=== PATIENT | female | born 1945 | race Caucasian/White ===

== ENCOUNTER 2024-08-02 16:27 | Emergency (ER) | payer OTHER, SELFPAY ==
[2024-08-02 16:30] VITALS: BP 112/89
[2024-08-02 16:32] VITALS: BP 112/89
[2024-08-02 16:35] VITALS: BMI 27.8
--- NOTE | 2024-08-02 16:39 | ED.MUSCINJ ---
HPI-Injury
General
Chief Complaint: Musculo-Skeletal Complaint
Source: patient
Exam Limitations: none
Time Seen by Provider: 08/02/24 16:29
Nursing documentation reviewed up to this point in time: agreed with
History of Present Illness-Injury
Is this injury a work related problem?: No
Is pt an associate of [facility]/[place]?: No
Initial Injury comments:
Patient states her sneakers caught on her carpet and she fell forward. Hit face on ground. No LOC. Able to get self up off ground. Has pain swelling and bruising to her nose. COmplains of severe pain to her right shoulder. Brought to ED via
EMS. Lives alone
Past History
Past History
ED Past Medical History: GERD, HTN, Hypercholesterolemia and Psychiatric (anxiety and deprsesion); Negative IDDM or NIDDM
Social History
Tobacco: Former smoker
Family History
Family History: CAD
Review of Systems
Review of Systems
Allergies reviewed?: Yes
All Other Systems: ROS reviewed and negative except as documented in HPI and ROS
Constitutional: Reports no symptoms
EENT: Reports no symptoms
Respiratory: Reports no symptoms
Cardiac: Reports no symptoms
ABD/GI: Reports no symptoms
Musculoskeletal: Reports joint pain (severe pain to right shoulder Pain swelling and brusing to nose)
Skin: Reports no symptoms
Neurological: Reports no symptoms
Psychiatric: Reports no symptoms
Musculoskeletal Injury Exam
Musculoskeletal Injury Exam
Right Shoulder:
Pain with Movement?: Moderate
Tender to palpation?: Moderate
Soft tissue swelling?: Moderate
External deformity and angulation?: None
Joint effusion?: None
Contusion?: Moderate
Hematoma-local bleeding into tissue?: None
Strain- Sprain- Tear (Connective tissue injury)?: Moderate
Crepitus with movement?: No
Joint instability?: No
Malalignment/deformity?: No
Range of motion: Limited
Distal skin color and temperature: normal-warm & good color
Capillary Refill: normal
Normal distal neurovascular exam?: Yes
Peripheral Pulses: radial (right): 3+
Nose:
Pain with Movement?: Moderate
Tender to palpation?: Moderate
Soft tissue swelling?: Moderate
External deformity and angulation?: None
Joint effusion?: None
Contusion?: Moderate
Hematoma-local bleeding into tissue?: Moderate
Strain- Sprain- Tear (Connective tissue injury)?: None
Crepitus with movement?: No
Joint instability?: No
Malalignment/deformity?: No
Distal skin color and temperature: normal-warm & good color
Capillary Refill: normal
Normal distal neurovascular exam?: Yes
Phy Exam
General Physical Exam
General Presentation: mild distress
General age: appears stated age
General Skin: warm and dry
General Habitus: normal
General Mental: alert
Eye Exam
Eye Exam: PERRL, EOMI, conjunctiva normal and globe normal
Neurological Exam
Neurological Exam: alert, oriented x3, CN II-XII intact, no motor deficits, no sensory deficits and speech normal
Musculoskeletal Exam
Musculoskeletal Exam: neuro vasc intact
Skin Exam
Skin Exam: normal color, warm/dry and no rash
Psychiatric Exam
Psychiatric Exam: normal mood/affect
Injury Course
Orders/Labs/Results
Orders:
Orders
08/02/24 16:38
CT Head W/o Iv Contrast Urgent
Comment:
Reason For Exam: trauma
HYDROmorphone [Dilaudid] 0.5 mg IV NOW STA
Ondansetron Injectable [Zofran] 4 mg IV NOW STA
Nasal Bones, complete 3 Views [CR Nasal Bones Comp Min 3 View] Urgent
Comment:
Reason For Exam: fall
Shoulder, Right, Trauma [CR Shoulder, Trauma - Right] Urgent
Comment:
Reason For Exam: fall
08/02/24 18:25
Shoulder Immobilizer Right- Tx ONCE
Hydrocodone 5/APAP 325 [[place] 5/325] 1 tablet PO NOW STA
*Radiology
Radiology exam reviewed: radiology read reviewed
*Pulse Oximetry
Patient hypoxic: no
*Critical Care Note
Total Time (30-74mins, 75-104mins- exclusive of procedures): Not Applicable
Update Note
Update Note:
Patient to ED s/p trip and fall. Xray results reviewed with with her. Fx to right proximal humerus. SHe was placed in shoulder immobilizer sling for comfort. Will discharge home. Lives alone but states she has plenty of help. Given rx for pain
medication. Will follow up withorthopodics. Dr. Tineo notified of injury, xrays transmitted via [employer] text.
ED Attending Note
-
Portions of this chart may have been created with voice recognition software.� Occasional wrong word or��sound alike� substitutions may have occurred due to the inherent limitations of voice recognition software.
Discharge Plan
Departure
Patient Disposition: Home (Routine Discharge)
Date of Disposition: 08/02/24
Time of Disposition: 18:25
Patient with high blood pressure during this ER visit?: No
Condition: Good
Covid-19: Not Applicable
Discharge Problem:
Fracture of proximal end of humerus
Instructions: How to Use a Shoulder Sling ED, Shoulder or upper arm fracture, Cold therapy for pain
Prescriptions:
New
hydrocodone-acetaminophen 5-325 mg tablet
1 tab PO Q4H PRN (Reason: Pain) Qty: 20 0RF
No Action
sucralfate 1 GRAM tablet
1 g PO QID Qty: 40 2RF
pantoprazole 40 MG tablet,delayed release (DR/EC)
40 mg PO BID Qty: 20 0RF
Referrals:
Cyrus Tineo MD [Active] - Call in 1-3 days for appt
Tre Zambrano DO [Family Provider] -
Interventions
Interventions:
*Risk Screen - Suicide Last Done: 08/02/24 16:30
*General Assessment Last Done: 08/02/24 16:30
*Neglect/Abuse Screening Last Done: 08/02/24 16:30
*Nursing Disposition Last Done: 08/02/24 19:09
ED-Musculoskeletal Assessment Last Done: 08/02/24 17:13
Discharge Date and Time
Discharge Date/Time: 08/02/24 19:10
Print Language: JAPANESE
[2024-08-02 17:00] VITALS: BP 117/63
[2024-08-02] MEDS: DILAUDID 0.5 MG IV (17:08)
[2024-08-02] MEDS: ZOFRAN 4 MG IV (17:08)
[2024-08-02] MEDS: NORCO 5/325 1 TABLET PO (18:53)
== END 2024-08-02 19:10 | disposition home or self-care (01) ==
LOC: EMR 16:27
PROVIDERS: EMERGENCY PHYSICIAN Emergency Medicine; FAMILY PHYSICIAN Family Medicine
DX: S42.291A Other displaced fracture of upper end of right humerus, initial encounter for closed fracture (principal); W01.0XXA Fall on same level from slipping, tripping and stumbling without subsequent striking against object, initial encounter; Z87.891 Personal history of nicotine dependence
CPT/HCPCS: 99285; 96374; 96375; 70160; 70450; 73030

== ENCOUNTER 2024-08-21 06:25 | Day surgery (SDC) | payer OTHER, SELFPAY ==
[2024-08-20 13:35] VITALS: BMI 25.9
[2024-08-20 14:01] LABS: Hematocrit 31.4 % (37.0-47.0); Hemoglobin 10.2 g/dL (12.0-16.0); Mean Corp Hgb Conc. 32.5 g/dL (33.0-37.0); Mean Corpuscular Hgb 30.3 pg (27.0-31.0); Mean Corpuscular Volume 93.2 fL (81.0-99.0); Mean Platelet Volume 8.9 fL (7.4-10.4); Platelet Count 336 10^3/uL (130-400); Red Blood Cell Count 3.37 10^6/uL (4.20-5.40); Red Cell Dist. Width 12.9 % (11.5-14.5); White Blood Cell Count 6.4 10^3/uL (4.8-10.8)
[2024-08-20 14:25] LABS: Blood Urea Nitrogen 37 mg/dl (7-17); Calcium 9.5 mg/dl (8.4-10.2); Carbon Dioxide 26 mmol/L (22-30); Chloride 106 mmol/L (98-107); Estimated Creatinine Clearance 26 ml/min; Glucose 96 mg/dl (70-99); Potassium 4.6 mmol/L (3.5-5.1); Sodium 141 mmol/L (135-145); eGFR 38.51
[2024-08-21] VITALS (8 sets, daily range): BP systolic 132–158; BP diastolic 70–119; BMI 25.9
--- NOTE | 2024-08-21 18:21 | OR.RPT ---
Operative Report
Operative Report
Date
August 21, 2024
Anesthesia Type:
General Block
Operative Indications:
Displaced predominantly 2 part proximal humerus fracture with near 100% displacement of shaft relative to humeral head
Operative Findings :
Same, mild comminution in the calcar
Complications:
None
Implants:
Pepe 8 mm proximal humerus intramedullary nail, proximal distal interlocking screws of appropriate length x 4
Procedure and Technique:
Intramedullary nail fixation right proximal humerus fracture
INDICATIONS FOR PROCEDURE:
Patient is an active 79-year-old female sustained mechanical fall the right shoulder. She was subsequently diagnosed with a 2 part proximal humerus fracture with greater than 100% displacement of shaft relative to the humeral head. She is seen in
the office had a long discussion regarding both surgical and nonsurgical options. Given the fracture pattern patient's activity level, she ultimately like to proceed with surgical intervention. We discussed risks benefits and alternatives. We
discussed the usual expected perioperative postoperative course. After discussion written informed consent was obtained
OPERATIVE PROCEDURE:
Patient was seen and identified in the preoperative holding area. All questions were addressed and answered. Upper extremities marked. She was taken to the operating room after peripheral block was performed. General anesthesia was then
administered. She was placed supine on a radiolucent flattop table. Small bump was placed under the scapula. Operative extremity was then prepped and draped in normal sterile fashion. Timeout was performed again identifying the correct operative
extremity. Preoperative antibiotics were addressed. Was unable to obtain appropriate reduction with closed reduction maneuvers. Small lateral incision was made through the deltoid to the fracture site. Blunt dissection was carried down to the
fracture site and Stephenson elevator was then inserted. This was a utilized to reduce the fracture. This was confirmed on orthogonal intraoperative fluoroscopy. A guidepin was then placed percutaneously through the femoral head shaft again confirmed
on orthogonal imaging. Proximal reamer was then utilized. 8 mm nail was then advanced appropriate depth. 3 additional stab incisions, 3 proximal interlocking screws were placed through the jig. 1 distal interlocking screw was also placed.
Appropriate reduction was again confirmed on orthogonal imaging. Satisfied with extent of surgery wound was copiously irrigated normal saline solution. Wounds were closed in layered fashion utilizing 2-0 Vicryl for subcutaneous layer lisa for
skin. Sterile dressing was applied consisting of Mepilex dressing. Anesthesia was reversed and patient was taken to PACU in stable condition. Postoperative plans include nonweightbearing to the operative extremity in a sling. Plan to see patient
back in office 2 weeks repeat radiographs plan removal of lisa initiation of physical therapy.
Disposition:
PACU stable condition
[2024-08-21] MEDS: DILAUDID 0.5 MG IV (18:36)
[2024-08-21] MEDS: ZOFRAN 4 MG IV (18:38)
== END 2024-08-21 19:45 | disposition home or self-care (01) ==
LOC: SDS 06:25
PROVIDERS: ATTENDING PHYSICIAN Orthopaedic Surgery; FAMILY PHYSICIAN Family Medicine
DX: S42.291A Other displaced fracture of upper end of right humerus, initial encounter for closed fracture (principal); W19.XXXA Unspecified fall, initial encounter
CPT/HCPCS: 24516; C1713; 36415; 73060; 76000; 80048; 85027; C1769